=== PATIENT | male | born 1980 | race Caucasian/White ===

== ENCOUNTER 2017-05-14 11:48 | Emergency (ER) | payer OTHER ==
[~2017-05-14] VITALS: Ht 182.9 cm; Wt 95.3 kg
[~2017-05-14 11:48] MED LIST: ATIVAN0.5 MG PO; ATIVAN1 MG PO; BENTYL 10 MG CA10 M1 PO; BENTYL20 MG PO; CARAFATE 1 GM TA1 G1 PO; CILOXAN5 ML OP; CLEOCIN HCL150 MG PO; HYDROCODON-ACE1 EAC7 PO; HYDROCODONE-AP1 EAC6 PO; Hydrocodone-Apap 5-325 Tablet PO; IBUPROFEN 600600 M1 PO; IBUPROFEN 800800 M1 PO; INVANZ 1GM/NS 101 GM IV; KETOROLAC 0.5% E5 ML OP; MULTIVITAMINS1 EAC7; NOHOMEMEDICATIONS; NORCO 5-325 TA1 EACH PO; ONDANSETRON HCL4 M1 IV; OSCIMIN SL0.125 MG SL; OXYCONTIN20 M1 PO; PAXIL 20 MG TAB20 M1 PO; PAXIL CR25 MG PO; PEPCID20 MG PO; PEPCID40 MG PO; PHENERGAN 25 MG25 M1 PO; PHENERGAN25 M2 RC; PHENERGAN50 MG RECTAL; PRADAXA150 MG PO; PREDNISONE 5 MG5 M1 PO; PRILOSEC 20 MG20 MG PO; PRILOSEC40 MG PO; PROMETHAZINE12.5 M1 PO; PROTONIX IV40 MG; ULTRACET TABLE1 EACH PO; UNICOMPLEX M TA1 TA1 PO; ZANTAC 150MG T150 M1 PO; ZOFRAN ODT4 MG PO; ZOFRAN4 MG PO
[2017-05-14 12:23] LABS: ABSOLUTE NEUTROPHILS 8.7 thou/uL (1.4-8.2); BASOPHILS 0.8 % (0.0-2.0); EOSINOPHILS 1.6 % (0.0-3.0); HEMATOCRIT 45.1 % (42.0-52.0); HEMOGLOBIN 15.3 gm/dL (14.0-18.0); LYMPHOCYTES 15.9 % (24.0-44.0); MCHC 33.9 g/dL (28.0-37.0); MCV 94.5 fL (80.0-100.0); MONOCYTES 5.7 % (1.0-8.0); PLATELET COUNT 235 thou/uL (150-400); RBC 4.77 mil/uL (4.50-6.00); RDW 12.8 % (10.5-14.5); WBC 11.5 thou/uL (4.0-11.0)
[2017-05-14 12:28] LABS: MANUAL DIFF NO
[2017-05-14 12:41] LABS: CALCIUM 9.4 mg/dL (8.5-10.1); CREATININE 1.2 mg/dL (0.7-1.3); POTASSIUM 3.9 mmol/L (3.5-5.1)
[2017-05-14 12:46] LABS: ALBUMIN 4.2 g/dL (3.4-5.0); DIRECT BILIRUBIN 0.2 mg/dL (<0.1-0.3); TOTAL BILIRUBIN 0.8 mg/dL (<0.1-1.0); TOTAL PROTEIN 7.5 g/dL (6.4-8.2)
[2017-05-14] MEDS ORDERED: TRUVADA1 EACH PO (14:03)
[2017-05-14] MEDS ORDERED: PROBIOTIC1 EAC1 PO (14:04)
[2017-05-14] MEDS ORDERED: COLACE100 MG PO (15:46)
== END 2017-05-14 16:23 | disposition home or self-care (01) ==
LOC: ER 11:48
PROVIDERS: Nurse Practitioner
DX: K59.00 Constipation, unspecified (principal); R11.2 Nausea with vomiting, unspecified; R19.7 Diarrhea, unspecified; F10.99 Alcohol use, unspecified with unspecified alcohol-induced disorder; Z90.49 Acquired absence of other specified parts of digestive tract; Z88.0 Allergy status to penicillin

== ENCOUNTER 2017-05-16 17:24 | Emergency (ER) | payer OTHER ==
[~2017-05-16] VITALS: Ht 182.9 cm; Wt 95.3 kg
[~2017-05-16 17:24] MED LIST changes: +COLACE100 MG PO; +PROBIOTIC1 EAC1 PO; +TRUVADA1 EACH PO
[2017-05-16 18:48] LABS: ABSOLUTE NEUTROPHILS 8.5 thou/uL (1.4-8.2); BASOPHILS 0.5 % (0.0-2.0); EOSINOPHILS 2.3 % (0.0-3.0); HEMATOCRIT 46.4 % (42.0-52.0); HEMOGLOBIN 15.6 gm/dL (14.0-18.0); LYMPHOCYTES 12.9 % (24.0-44.0); MANUAL DIFF NO; MCH 31.7 pg (26.0-34.0); MCHC 33.6 g/dL (28.0-37.0); MCV 94.3 fL (80.0-100.0); MONOCYTES 9.6 % (1.0-8.0); PLATELET COUNT 238 thou/uL (150-400); POLYS 74.7 % (36.0-66.0); RBC 4.92 mil/uL (4.50-6.00); WBC 11.5 thou/uL (4.0-11.0)
[2017-05-16 18:56] LABS: CALCIUM 9.8 mg/dL (8.5-10.1); CREATININE 1.2 mg/dL (0.7-1.3); POTASSIUM 3.9 mmol/L (3.5-5.1)
[2017-05-16 19:01] LABS: ALBUMIN 4.4 g/dL (3.4-5.0); DIRECT BILIRUBIN 0.2 mg/dL (<0.1-0.3); TOTAL BILIRUBIN 0.9 mg/dL (<0.1-1.0); TOTAL PROTEIN 7.6 g/dL (6.4-8.2)
[2017-05-16] MEDS ORDERED: PROMS25 WY RECTAL (19:03)
[2017-05-16] MEDS ORDERED: PHENERGAN 25 MG25 M1 PO (19:03)
== END 2017-05-16 19:45 | disposition home or self-care (01) ==
LOC: ER 17:24
PROVIDERS: Emergency Medicine
DX: K59.00 Constipation, unspecified (principal); R11.2 Nausea with vomiting, unspecified; F17.210 Nicotine dependence, cigarettes, uncomplicated; F10.99 Alcohol use, unspecified with unspecified alcohol-induced disorder; Z87.11 Personal history of peptic ulcer disease; Z98.890 Other specified postprocedural states; Z88.0 Allergy status to penicillin

== ENCOUNTER 2017-08-12 14:14 | Emergency (ER) | payer BC, OTHER ==
[~2017-08-12] VITALS: Ht 185.4 cm; Wt 86.2 kg
[~2017-08-12 14:14] MED LIST changes: +PROMS25 WY RECTAL
[2017-08-12 14:22] VITALS: BP 122/87
[2017-08-12] MEDS ORDERED: MULTIVITAMINS1 EAC6 PO (14:31)
[2017-08-12] MEDS ORDERED: STOOL SOFTENER100 MG (14:32)
[2017-08-12] MEDS ORDERED: ULTRAM 50MG TAB50 MG PO (14:43)
[2017-08-12] MEDS ORDERED: IBUPROFEN 800800 M1 PO (14:43)
== END 2017-08-12 15:16 | disposition home or self-care (01) ==
LOC: ER 14:14
DX: K08.89 Other specified disorders of teeth and supporting structures (principal); F17.210 Nicotine dependence, cigarettes, uncomplicated; Z88.0 Allergy status to penicillin

== ENCOUNTER 2019-08-23 22:00 | Emergency (ER) | payer BC, OTHER ==
[~2019-08-23] VITALS: Ht 182.9 cm; Wt 79.4 kg
[~2019-08-23 22:00] MED LIST changes: +MULTIVITAMINS1 EAC6 PO; +STOOL SOFTENER100 MG; +ULTRAM 50MG TAB50 MG PO
[2019-08-23] MEDS ORDERED: OMEPRAZOLE 20 M20 M1 PO (22:09)
[2019-08-23] MEDS ORDERED: DICYCLOMINE HCL20 MG PO (22:10)
[2019-08-23 22:33] LABS: ABSOLUTE NEUTROPHILS 4.5 thou/uL (1.4-8.2); BASOPHILS 0.6 % (0.0-2.0); EOSINOPHILS 1.7 % (0.0-3.0); HEMATOCRIT 43.8 % (42.0-52.0); HEMOGLOBIN 14.7 gm/dL (14.0-18.0); LYMPHOCYTES 25.3 % (24.0-44.0); MCH 32.6 pg (26.0-34.0); MCHC 33.6 g/dL (28.0-37.0); MCV 97.1 fL (80.0-100.0); MONOCYTES 10.8 % (1.0-8.0); PLATELET COUNT 194 thou/uL (150-400); POLYS 61.6 % (36.0-66.0); RBC 4.51 mil/uL (4.50-6.00); RDW 13.1 % (10.5-14.5); WBC 7.2 thou/uL (4.0-11.0)
[2019-08-23 22:50] LABS: CALCIUM 9.1 mg/dL (8.5-10.1); CREATININE 1.1 mg/dL (0.7-1.3); POTASSIUM 4.3 mmol/L (3.5-5.1)
[2019-08-23 22:55] LABS: ALBUMIN 4.1 g/dL (3.4-5.0); TOTAL BILIRUBIN 0.8 mg/dL (<0.1-1.0); TOTAL PROTEIN 7.7 g/dL (6.4-8.2)
[2019-08-24] MEDS ORDERED: NAPROSYN500 MG PO (00:38)
[2019-08-24] MEDS ORDERED: ONDANSETRON ODT8 MG PO (00:38)
[2019-08-24] MEDS ORDERED: TAMIFLU75 MG PO (00:38)
[2019-08-24 00:55] VITALS: BP 111/70
== END 2019-08-24 00:57 | disposition home or self-care (01) ==
LOC: ER 22:00
PROVIDERS: Emergency Medicine
DX: J10.1 Influenza due to other identified influenza virus with other respiratory manifestations (principal); R51 Headache; F17.210 Nicotine dependence, cigarettes, uncomplicated

== ENCOUNTER 2019-10-24 10:58 | Emergency (ER) | payer BC, OTHER ==
[~2019-10-24] VITALS: Ht 182.9 cm; Wt 79.4 kg
[~2019-10-24 10:58] MED LIST changes: +DICYCLOMINE HCL20 MG PO; +NAPROSYN500 MG PO; +OMEPRAZOLE 20 M20 M1 PO; +ONDANSETRON ODT8 MG PO; +TAMIFLU75 MG PO
[2019-10-24 11:23] LABS: URINE BILIRUBIN NEGATIVE (Negative); URINE BLOOD NEGATIVE (Negative); URINE CLARITY CLEAR; URINE COLOR YELLOW; URINE GLUCOSE-RANDOM* NEGATIVE (Negative); URINE KETONES NEGATIVE (Negative); URINE LEUKOCYTES-REFLEX NEGATIVE (Negative); URINE NITRITE-REFLEX NEGATIVE (Negative); URINE PROTEIN (DIPSTICK) NEGATIVE (Negative); URINE SPECIFIC GRAVITY 1.025 (1.005-1.035); URINE UROBILINOGEN 0.2 E.U./dl (0.2-1.0)
[2019-10-24 11:31] LABS: ABSOLUTE NEUTROPHILS 3.9 thou/uL (1.4-8.2); BASOPHILS 0.9 % (0.0-2.0); EOSINOPHILS 5.2 % (0.0-3.0); HEMATOCRIT 45.3 % (42.0-52.0); HEMOGLOBIN 15.6 gm/dL (14.0-18.0); LYMPHOCYTES 38.8 % (24.0-44.0); MCH 32.8 pg (26.0-34.0); MCHC 34.4 g/dL (28.0-37.0); MCV 95.2 fL (80.0-100.0); MONOCYTES 8.1 % (1.0-8.0); PLATELET COUNT 256 thou/uL (150-400); RBC 4.76 mil/uL (4.50-6.00); WBC 8.4 thou/uL (4.0-11.0)
[2019-10-24 11:40] LABS: POTASSIUM 4.3 mmol/L (3.5-5.1)
[2019-10-24 11:46] LABS: ALBUMIN 4.1 g/dL (3.4-5.0); DIRECT BILIRUBIN 0.1 mg/dL (<0.1-0.2); TOTAL BILIRUBIN 0.8 mg/dL (<0.1-1.0)
[2019-10-24 12:35] VITALS: BP 118/67
== END 2019-10-24 12:37 | disposition home or self-care (01) ==
LOC: ER 10:58
PROVIDERS: Nurse Practitioner
DX: K58.9 Irritable bowel syndrome, unspecified (principal); R11.2 Nausea with vomiting, unspecified; F17.210 Nicotine dependence, cigarettes, uncomplicated; Z79.899 Other long term (current) drug therapy

== ENCOUNTER 2019-12-11 19:47 | Emergency (ER) | payer BC, OTHER ==
[~2019-12-11] VITALS: Ht 182.9 cm; Wt 79.4 kg
[2019-12-11] MEDS ORDERED: BENTYL 20 MG TA20 M1 PO (19:54)
[2019-12-11] MEDS ORDERED: PROTONIX40 M2 PO (19:55)
[2019-12-11 20:16] LABS: ABSOLUTE NEUTROPHILS 4.2 thou/uL (1.4-8.2); EOSINOPHILS 3.6 % (0.0-3.0); HEMATOCRIT 44.4 % (42.0-52.0); HEMOGLOBIN 15.4 gm/dL (14.0-18.0); LYMPHOCYTES 39.8 % (24.0-44.0); MCH 32.5 pg (26.0-34.0); MCHC 34.8 g/dL (28.0-37.0); MCV 93.5 fL (80.0-100.0); MONOCYTES 10.2 % (1.0-8.0); PLATELET COUNT 231 thou/uL (150-400); POLYS 45.4 % (36.0-66.0); RBC 4.75 mil/uL (4.50-6.00); RDW 13.3 % (10.5-14.5); WBC 9.1 thou/uL (4.0-11.0)
[2019-12-11 20:23] LABS: CALCIUM 9.5 mg/dL (8.5-10.1); CREATININE 1.2 mg/dL (0.7-1.3); POTASSIUM 4.2 mmol/L (3.5-5.1)
[2019-12-11 20:30] LABS: ALBUMIN 4.4 g/dL (3.4-5.0); TOTAL BILIRUBIN 0.9 mg/dL (<0.1-1.0); TOTAL PROTEIN 7.7 g/dL (6.4-8.2)
[2019-12-11 20:52] LABS: URINE BILIRUBIN NEGATIVE (Negative); URINE BLOOD NEGATIVE (Negative); URINE CLARITY CLEAR; URINE COLOR YELLOW; URINE GLUCOSE-RANDOM* NEGATIVE (Negative); URINE KETONES 1+ (Negative); URINE LEUKOCYTES-REFLEX NEGATIVE (Negative); URINE NITRITE-REFLEX NEGATIVE (Negative); URINE PROTEIN (DIPSTICK) TRACE (Negative); URINE UROBILINOGEN 0.2 E.U./dl (0.2-1.0)
[2019-12-11] MEDS ORDERED: ULTRAM 50MG TAB50 MG PO (21:59)
[2019-12-11] MEDS ORDERED: CARAFATE 1 GM TA1 G1 PO (21:59)
[2019-12-11] MEDS ORDERED: ZOFRAN ODT4 MG PO (21:59)
[2019-12-11 22:40] VITALS: BP 94/64
== END 2019-12-11 22:14 | disposition home or self-care (01) ==
LOC: ER 19:47
PROVIDERS: Emergency Medicine
DX: R10.84 Generalized abdominal pain (principal); F17.210 Nicotine dependence, cigarettes, uncomplicated; Z79.899 Other long term (current) drug therapy; Z88.0 Allergy status to penicillin; Z87.19 Personal history of other diseases of the digestive system

== ENCOUNTER 2020-01-08 14:46 | Emergency (ER) | payer BC, OTHER ==
[~2020-01-08] VITALS: Ht 180.3 cm; Wt 79.4 kg
[~2020-01-08 14:46] MED LIST changes: +BENTYL 20 MG TA20 M1 PO; +PROTONIX40 M2 PO
[2020-01-08 15:19] LABS: ABSOLUTE NEUTROPHILS 5.3 thou/uL (1.4-8.2); BASOPHILS 0.6 % (0.0-2.0); EOSINOPHILS 3.7 % (0.0-3.0); HEMATOCRIT 43.1 % (42.0-52.0); HEMOGLOBIN 14.7 gm/dL (14.0-18.0); LYMPHOCYTES 26.5 % (24.0-44.0); MCH 32.1 pg (26.0-34.0); MCV 94.3 fL (80.0-100.0); MONOCYTES 7.1 % (1.0-8.0); PLATELET COUNT 247 thou/uL (150-400); POLYS 62.1 % (36.0-66.0); RBC 4.57 mil/uL (4.50-6.00); RDW 12.9 % (10.5-14.5); WBC 8.6 thou/uL (4.0-11.0)
[2020-01-08 15:32] LABS: CALCIUM 8.8 mg/dL (8.5-10.1); POTASSIUM 4.2 mmol/L (3.5-5.1)
[2020-01-08 15:37] LABS: ALBUMIN 3.5 g/dL (3.4-5.0); TOTAL BILIRUBIN 0.5 mg/dL (0.2-1.0); TOTAL PROTEIN 6.4 g/dL (6.4-8.2)
[2020-01-08 15:53] LABS: URINE BILIRUBIN NEGATIVE (Negative); URINE BLOOD NEGATIVE (Negative); URINE CLARITY CLEAR; URINE COLOR YELLOW; URINE GLUCOSE-RANDOM* NEGATIVE (Negative); URINE KETONES NEGATIVE (Negative); URINE LEUKOCYTES-REFLEX NEGATIVE (Negative); URINE NITRITE-REFLEX NEGATIVE (Negative); URINE PROTEIN (DIPSTICK) NEGATIVE (Negative); URINE SPECIFIC GRAVITY 1.015 (1.005-1.035); URINE UROBILINOGEN 0.2 E.U./dl (0.2-1.0)
[2020-01-08] MEDS ORDERED: REGLAN 10 MG TA10 MG PO (16:36)
[2020-01-08 17:09] VITALS: BP 104/67
== END 2020-01-08 17:09 | disposition home or self-care (01) ==
LOC: ER 14:46
PROVIDERS: Physician Assistant
DX: R11.2 Nausea with vomiting, unspecified (principal); R10.13 Epigastric pain; G89.29 Other chronic pain; F17.210 Nicotine dependence, cigarettes, uncomplicated; Z79.899 Other long term (current) drug therapy; Z88.0 Allergy status to penicillin

== ENCOUNTER 2020-01-12 23:40 | Emergency (ER) | payer OTHER, BC ==
[~2020-01-12] VITALS: Ht 226.1 cm; Wt 79.4 kg
[~2020-01-12 23:40] MED LIST changes: +REGLAN 10 MG TA10 MG PO
[2020-01-13 00:50] LABS: ABSOLUTE NEUTROPHILS 5.8 thou/uL (1.4-8.2); BASOPHILS 0.3 % (0.0-2.0); EOSINOPHILS 4.6 % (0.0-3.0); HEMATOCRIT 43.4 % (42.0-52.0); HEMOGLOBIN 14.9 gm/dL (14.0-18.0); LYMPHOCYTES 28.7 % (24.0-44.0); MCH 32.6 pg (26.0-34.0); MCHC 34.3 g/dL (28.0-37.0); MCV 95.1 fL (80.0-100.0); MONOCYTES 8.2 % (1.0-8.0); PLATELET COUNT 265 thou/uL (150-400); POLYS 58.2 % (36.0-66.0); RBC 4.56 mil/uL (4.50-6.00)
[2020-01-13] MEDS ORDERED: NAPROSYN500 MG PO (00:50)
[2020-01-13] MEDS ORDERED: TRAMADOL 50 MG50 MG PO (00:50)
[2020-01-13 00:52] LABS: CALCIUM 8.6 mg/dL (8.5-10.1); CREATININE 1.1 mg/dL (0.7-1.3); POTASSIUM 3.9 mmol/L (3.5-5.1)
[2020-01-13 00:58] LABS: ALBUMIN 3.5 g/dL (3.4-5.0); TOTAL BILIRUBIN 0.4 mg/dL (0.2-1.0); TOTAL PROTEIN 6.4 g/dL (6.4-8.2)
[2020-01-13 01:35] LABS: URINE BILIRUBIN NEGATIVE (Negative); URINE BLOOD 1+ (Negative); URINE CLARITY CLEAR; URINE COLOR YELLOW; URINE GLUCOSE-RANDOM* NEGATIVE (Negative); URINE KETONES NEGATIVE (Negative); URINE LEUKOCYTES-REFLEX NEGATIVE (Negative); URINE NITRITE-REFLEX NEGATIVE (Negative); URINE PROTEIN (DIPSTICK) TRACE (Negative); URINE SPECIFIC GRAVITY 1.025 (1.005-1.035); URINE UROBILINOGEN 0.2 E.U./dl (0.2-1.0)
[2020-01-13 01:58] LABS: SQUAMOUS 4-10 Moderate /LPF (0-3); URINE RBC 3-10 Few /HPF (0-2); URINE WBC-REFLEX 0-5 Rare /HPF (0-5)
[2020-01-13 01:59] LABS: BACTERIA-REFLEX 1-9 Few /HPF (None Seen); CASTS None Seen /LPF (None Seen); CRYSTALS None Seen /LPF (None Seen); MUCUS 4-6 Moderate strn/LPF (None Seen)
[2020-01-13 02:31] VITALS: BP 104/66
== END 2020-01-13 02:32 | disposition home or self-care (01) ==
LOC: ER 23:40
PROVIDERS: Emergency Medicine
DX: S32.058A Other fracture of fifth lumbar vertebra, initial encounter for closed fracture (principal); S80.212A Abrasion, left knee, initial encounter; F17.210 Nicotine dependence, cigarettes, uncomplicated; Z79.899 Other long term (current) drug therapy; Z88.0 Allergy status to penicillin; V43.52XA Car driver injured in collision with other type car in traffic accident, initial encounter; Y93.89 Activity, other specified; Y92.89 Other specified places as the place of occurrence of the external cause; Y99.8 Other external cause status

== ENCOUNTER 2020-05-04 14:01 | Emergency (ER) | payer BC, OTHER ==
[~2020-05-04] VITALS: Ht 182.9 cm; Wt 77.1 kg
[~2020-05-04 14:01] MED LIST changes: +TRAMADOL 50 MG50 MG PO
[2020-05-04 15:12] LABS: URINE BILIRUBIN NEGATIVE (Negative); URINE BLOOD NEGATIVE (Negative); URINE CLARITY CLEAR; URINE COLOR YELLOW; URINE GLUCOSE-RANDOM* NEGATIVE (Negative); URINE KETONES NEGATIVE (Negative); URINE LEUKOCYTES-REFLEX NEGATIVE (Negative); URINE NITRITE-REFLEX NEGATIVE (Negative); URINE PROTEIN (DIPSTICK) 1+ (Negative); URINE SPECIFIC GRAVITY 1.025 (1.005-1.035); URINE UROBILINOGEN 0.2 E.U./dl (0.2-1.0)
[2020-05-04 15:20] LABS: ABSOLUTE NEUTROPHILS 10.3 thou/uL (1.4-8.2); BASOPHILS 0.3 % (0.0-2.0); HEMATOCRIT 46.1 % (42.0-52.0); HEMOGLOBIN 15.3 gm/dL (14.0-18.0); LYMPHOCYTES 16.2 % (24.0-44.0); MCH 31.7 pg (26.0-34.0); MCHC 33.2 g/dL (28.0-37.0); MCV 95.5 fL (80.0-100.0); MONOCYTES 6.4 % (1.0-8.0); PLATELET COUNT 232 thou/uL (150-400); POLYS 75.1 % (36.0-66.0); RBC 4.83 mil/uL (4.50-6.00); RDW 13.2 % (10.5-14.5); WBC 13.7 thou/uL (4.0-11.0)
[2020-05-04 15:22] LABS: BACTERIA-REFLEX 1-9 Few /HPF (None Seen); CASTS None Seen /LPF (None Seen); CRYSTALS None Seen /LPF (None Seen); SQUAMOUS None Seen /LPF (0-3); URINE RBC None Seen /HPF (0-2); URINE WBC-REFLEX 0-5 Rare /HPF (0-5)
[2020-05-04 15:34] LABS: CALCIUM 9.5 mg/dL (8.5-10.1); POTASSIUM 4.2 mmol/L (3.5-5.1)
[2020-05-04 15:39] LABS: ALBUMIN 4.5 g/dL (3.4-5.0); TOTAL BILIRUBIN 0.8 mg/dL (0.2-1.0)
--- NOTE | 2020-05-04 15:58 | EKG ---
[facility] [place] [address] ELECTROCARDIOGRAM REPORT Name: RADHA CRANDALL Room #: PRE M.R.#: [id number] Admission: Attend Phys: Discharge: Date of : 78 Report #: [id number] THIS REPORT FOR: cc: Bal Alvarado David J. DO Santiago, Patrick MD [facility] ~ THIS REPORT FOR: //name// [facility] ED Test Date: 2020-05-04 Test Time: 15:40:08 Pat Name: RADHA CRANDALL Department: Room: Gender: M Premium Representative: luis deuardo : 1980 Requested By: Bismark Hinds Order Number: [id number] MD: Zeyad Song Measurements Intervals [place] Rate: 51 P: 55 NV: 213 QRS: 94 QRSD: 156 T: 49 QT: 463 QTc: 427 Interpretive Statements Sinus rhythm RBBB No previous ECG available for comparison Electronically Signed On 05-04-2020 15:58:37 CDT by Zeyad Song [email or web address] <ELECTRONICALLY SIGNED> By: Zeyad Song MD, FACC 05/04/20 1558 1540 1540 Zeyad Song MD, FACC /EPI
[2020-05-04 16:03] LABS: AMP/METHAMP Negative (Negative); BARBITURATES Negative (Negative); BENZODIAZEPINES Negative (Negative); COCAINE Negative (Negative); METHADONE Negative (Negative); OPIATES Negative (Negative); PCP Negative (Negative)
[2020-05-04] MEDS ORDERED: ONDANSETRON HCL4 M2 PO (17:37)
[2020-05-04] MEDS ORDERED: PROTONIX 20 MG20 M1 PO (18:13)
[2020-05-04 18:30] VITALS: BP 100/62
== END 2020-05-04 18:30 | disposition home or self-care (01) ==
LOC: ER 14:01
PROVIDERS: Physician Assistant
DX: R10.13 Epigastric pain (principal); R11.2 Nausea with vomiting, unspecified; F17.210 Nicotine dependence, cigarettes, uncomplicated; Z79.899 Other long term (current) drug therapy; Z88.0 Allergy status to penicillin

== ENCOUNTER 2020-05-06 07:47 | Emergency (ER) | payer BC, OTHER ==
[~2020-05-06] VITALS: Ht 182.9 cm; Wt 72.6 kg
[~2020-05-06 07:47] MED LIST changes: +ONDANSETRON HCL4 M2 PO; +PROTONIX 20 MG20 M1 PO
[2020-05-06 08:26] LABS: ABSOLUTE NEUTROPHILS 6.8 thou/uL (1.4-8.2); BASOPHILS 0.3 % (0.0-2.0); EOSINOPHILS 0.3 % (0.0-3.0); HEMATOCRIT 45.5 % (42.0-52.0); HEMOGLOBIN 15.7 gm/dL (14.0-18.0); MCH 32.6 pg (26.0-34.0); MCHC 34.5 g/dL (28.0-37.0); MCV 94.7 fL (80.0-100.0); MONOCYTES 6.7 % (1.0-8.0); PLATELET COUNT 246 thou/uL (150-400); POLYS 71.7 % (36.0-66.0); RDW 13.1 % (10.5-14.5); WBC 9.5 thou/uL (4.0-11.0)
[2020-05-06 08:42] LABS: CALCIUM 9.7 mg/dL (8.5-10.1); CREATININE 1.3 mg/dL (0.7-1.3); POTASSIUM 3.9 mmol/L (3.5-5.1)
[2020-05-06 08:48] LABS: ALBUMIN 4.7 g/dL (3.4-5.0); DIRECT BILIRUBIN 0.2 mg/dL (<0.1-0.2); TOTAL BILIRUBIN 1.3 mg/dL (0.2-1.0); TOTAL PROTEIN 8.1 g/dL (6.4-8.2)
[2020-05-06 09:44] LABS: URINE BILIRUBIN NEGATIVE (Negative); URINE BLOOD NEGATIVE (Negative); URINE CLARITY CLEAR; URINE COLOR YELLOW; URINE GLUCOSE-RANDOM* NEGATIVE (Negative); URINE KETONES 3+ (Negative); URINE LEUKOCYTES-REFLEX NEGATIVE (Negative); URINE NITRITE-REFLEX NEGATIVE (Negative); URINE PROTEIN (DIPSTICK) 2+ (Negative); URINE SPECIFIC GRAVITY 1.025 (1.005-1.035); URINE UROBILINOGEN 0.2 E.U./dl (0.2-1.0)
[2020-05-06 09:51] LABS: SQUAMOUS 0-3 Few /LPF (0-3)
[2020-05-06 09:52] LABS: BACTERIA-REFLEX 1-9 Few /HPF (None Seen); CASTS None Seen /LPF (None Seen); CRYSTALS None Seen /LPF (None Seen); URINE RBC 0-2 Rare /HPF (0-2); URINE WBC-REFLEX None Seen /HPF (0-5)
[2020-05-06] MEDS ORDERED: CARAFATE1 GM PO (12:10)
[2020-05-06 12:38] VITALS: BP 124/73
== END 2020-05-06 12:43 | disposition home or self-care (01) ==
LOC: ER 07:47
PROVIDERS: Emergency Medicine
DX: R82.4 Acetonuria (principal); R10.33 Periumbilical pain; R11.2 Nausea with vomiting, unspecified; F17.210 Nicotine dependence, cigarettes, uncomplicated; Z90.49 Acquired absence of other specified parts of digestive tract; Z79.899 Other long term (current) drug therapy; Z88.0 Allergy status to penicillin

== ENCOUNTER 2020-08-15 11:40 | Emergency (ER) | payer OTHER ==
[~2020-08-15] VITALS: Ht 182.9 cm; Wt 81.7 kg
[~2020-08-15 11:40] MED LIST changes: +CARAFATE1 GM PO
[2020-08-15 13:03] LABS: BASOPHILS 0.5 % (0.0-2.0); HEMATOCRIT 44.7 % (42.0-52.0); LYMPHOCYTES 19.4 % (24.0-44.0); MCH 32.3 pg (26.0-34.0); MCHC 33.7 g/dL (28.0-37.0); MCV 95.8 fL (80.0-100.0); PLATELET COUNT 242 thou/uL (150-400); POLYS 67.1 % (36.0-66.0); RBC 4.66 mil/uL (4.50-6.00); RDW 12.7 % (10.5-14.5); WBC 10.5 thou/uL (4.0-11.0)
[2020-08-15 13:10] LABS: CALCIUM 9.4 mg/dL (8.5-10.1); CREATININE 1.1 mg/dL (0.7-1.3); POTASSIUM 4.2 mmol/L (3.5-5.1)
[2020-08-15 13:16] LABS: ALBUMIN 4.3 g/dL (3.4-5.0); TOTAL BILIRUBIN 0.8 mg/dL (0.2-1.0); TOTAL PROTEIN 7.4 g/dL (6.4-8.2)
[2020-08-15] MEDS ORDERED: BENTYL 10 MG CA10 M1 PO (16:36)
[2020-08-15] MEDS ORDERED: ZOFRAN ODT4 MG PO (16:36)
[2020-08-15 16:45] VITALS: BP 129/78
== END 2020-08-15 16:45 | disposition home or self-care (01) ==
LOC: ER 11:40
PROVIDERS: Emergency Medicine
DX: R11.15 Cyclical vomiting syndrome unrelated to migraine (principal); F12.90 Cannabis use, unspecified, uncomplicated; R10.33 Periumbilical pain; R11.0 Nausea; F17.210 Nicotine dependence, cigarettes, uncomplicated; Z90.49 Acquired absence of other specified parts of digestive tract; Z79.899 Other long term (current) drug therapy; Z88.0 Allergy status to penicillin

== ENCOUNTER 2021-02-05 16:44 | Emergency (ER) | payer OTHER ==
[~2021-02-05] VITALS: Ht 182.9 cm; Wt 77.1 kg
[2021-02-05 17:24] LABS: URINE BILIRUBIN NEGATIVE (Negative); URINE BLOOD NEGATIVE (Negative); URINE CLARITY CLEAR; URINE COLOR YELLOW; URINE GLUCOSE-RANDOM* NEGATIVE (Negative); URINE KETONES NEGATIVE (Negative); URINE LEUKOCYTES-REFLEX NEGATIVE (Negative); URINE NITRITE-REFLEX NEGATIVE (Negative); URINE PROTEIN (DIPSTICK) 1+ (Negative)
[2021-02-05 17:32] LABS: BACTERIA-REFLEX 1-9 Few /HPF (None Seen); CASTS None Seen /LPF (None Seen); CRYSTALS None Seen /LPF (None Seen); SQUAMOUS None Seen /LPF (0-3); URINE RBC None Seen /HPF (NONE SEEN); URINE WBC-REFLEX 0-5 Rare /HPF (0-5)
[2021-02-05 17:40] LABS: ABSOLUTE NEUTROPHILS 3.2 thou/uL (1.4-8.2); BASOPHILS 1.1 % (0.0-2.0); EOSINOPHILS 5.2 % (0.0-3.0); HEMATOCRIT 42.7 % (42.0-52.0); LYMPHOCYTES 37.2 % (24.0-44.0); MCH 32.3 pg (26.0-34.0); MCV 92.1 fL (80.0-100.0); MONOCYTES 12.4 % (1.0-8.0); PLATELET COUNT 227 thou/uL (150-400); POLYS 44.1 % (36.0-66.0); RBC 4.64 mil/uL (4.50-6.00); RDW 12.8 % (10.5-14.5); WBC 7.2 thou/uL (4.0-11.0)
[2021-02-05 17:44] LABS: CALCIUM 9.2 mg/dL (8.5-10.1); CREATININE 1.1 mg/dL (0.7-1.3); POTASSIUM 4.5 mmol/L (3.5-5.1)
[2021-02-05 17:51] LABS: ALBUMIN 4.3 g/dL (3.4-5.0); TOTAL BILIRUBIN 0.7 mg/dL (0.2-1.0); TOTAL PROTEIN 7.3 g/dL (6.4-8.2)
[2021-02-05 20:47] VITALS: BP 123/69
== END 2021-02-05 20:47 | disposition home or self-care (01) ==
LOC: ER 16:44
PROVIDERS: Emergency Medicine
DX: R11.15 Cyclical vomiting syndrome unrelated to migraine (principal); R10.9 Unspecified abdominal pain; F12.10 Cannabis abuse, uncomplicated; F17.210 Nicotine dependence, cigarettes, uncomplicated; Z88.0 Allergy status to penicillin; Z90.49 Acquired absence of other specified parts of digestive tract; Z79.899 Other long term (current) drug therapy